=== PATIENT | female | born 1935 | race Caucasian/White ===

== ENCOUNTER → 2019-07-01 | Outpatient (CLI) | payer MEDICARE ==
[~2019-07-01] MED LIST: IOPAMIDOL 370 MG/ML 200 ML INFUS..BTL INJ ONE; SODIUM CHLORIDE 0.9% 100 ML 100 ML ONE; SODIUM CHLORIDE 0.9% 50ML 0 ML ONE
[2019-07-01 14:07] LABS: CREATININE, SERUM 0.9 mg/dL (0.57-1.11)
--- NOTE | 2019-07-01 15:30 | Diagnostic Imaging Report ---
CT of the abdomen and pelvis, with contrast. History: AAA. Comparison: <None available>. Technique: Multidetector CT scanning of the abdomen and pelvis was performed from the level of the lung bases to the inferior pubic ramus, after intravenous administration of contrast. No oral contrast was given. Sagittal and coronal multiplanar and 3D VRT reformations were obtained. Discussion: Aorta and proximal branches: An aneurysm of the distal descending thoracic and abdominal aorta is present with diffusely scattered atherosclerotic calcification and minimal mural thrombus in the distal descending thoracic aorta. The maximal diameter of the aneurysm measures 3.6 x 4.2 cm (AP by transverse) in the distal descending thoracic aorta. The celiac trunk and SMA are patent and dilated, measuring 10 and 9 mm in diameter respectively. There are single renal arteries bilaterally which are patent. The common iliac arteries are dilated and patent, measuring 15 and 10 mm in diameter respectively. Maximal measurement of the aorta are as follows: 4.2 cm in the distal descending thoracic aorta, 3.3 cm at the level of the diaphragmatic hiatus, 2.7 cm at the level of the celiac trunk, 2.5 cm at the level of the SMA, 3.0 cm at level of the renal arteries, 2.2 cm just above the level of the bifurcation, . Lung bases: The heart is enlarged. There is bibasilar atelectasis. Abdomen: The liver, biliary tree, spleen, pancreas, adrenal glands, and kidneys are normal. Cholecystectomy clips are present. The hepatic vein, portal vein, and splenic vein are patent. Evaluation of bowel is limited without oral contrast. There is no bowel dilatation. Scattered diverticula are present within the colon without evidence of adjacent inflammation. There is no evidence of adenopathy or free fluid. Pelvis: The bladder, uterus, adnexa are normal in appearance. There is no evidence of free fluid or adenopathy. Bones: Degenerative changes are present throughout the lumbar spine without evidence of lytic or sclerotic lesion. IMPRESSION: 1. 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 2. Colonic diverticulosis without evidence of diverticulitis. 3. Status post cholecystectomy. Signed by: Yifan Andersen on 07/01/2019 3:27 PM
== END ==
LOC: CT 13:06
PROVIDERS: ATTEND Internal Medicine
DX: I71.4 Abdominal aortic aneurysm, without rupture (principal); R10.9 Unspecified abdominal pain
CPT/HCPCS: 36415; 74174; 82565; 84520; Q9967

== ENCOUNTER 2020-05-25 10:43 | Observation (INO) | payer MEDICARE ==
[~2020-05-25] VITALS: Ht 157.5 cm; Wt 91.6 kg
--- NOTE | 2020-05-25 11:08 | NUR ---
LIVES ALONE; LIVES IN AN APARTMENT FOR 55 AND OLDER. NOT ASST LIVING.
--- NOTE | 2020-05-25 11:12 | NUR ---
ALL JEWLERY GIVEN TO DAUGHTER CALLY.
--- NOTE | 2020-05-25 11:30 | Emergency Department Note ---
History of Present Illnes History of Present Illness Chief Complaint: COVID PUI History of Present Illness This is a 85 year old female Chief Complaint Comment COUGH, SOB. HX CHF. PT AWAKE AND ALERT AND AMBULATORY. SENT BY DR DANIELLE FOR CHF EXACERBATION . Historian: Patient, Family Member Arrival Mode: Car Past Medical/Family History Physician Review I have reviewed the patient's past medical and family history. Any updates have been documented here. Past Medical History Recent Fever: No Clinical Suspicion of Infectio: No New/Unexplained Change in Ment: No Past Medical History: Hypertension, CHF, A-Fib, Hypothyroidism, Cancer, UTI's, Anxiety, Depression, Other Mental Illness, Hyperlipedemia Other Medical History: DEMENTIA/ALZHEIMER OBESITY AAA DIVERTICULOSIS FALLS EX SMOKER ?CANCER-BREAST (HX RADIATION POST LUMPECTOMY) Past Surgical History: Cholecysctectomy, Tubal Ligation, Lumpectomy, Cataract Removal Social History Physically hurt or threatened: No Physical Exam Related Data Allergies: Coded Allergies: Penicillins (Verified Allergy, Unknown, 05/25/20) Sulfa (Sulfonamide Antibiotics) (Verified Allergy, Unknown, 05/25/20) hydromorphone (Verified Allergy, Unknown, 05/25/20) nitrofurantoin (Verified Allergy, Unknown, 05/25/20) Triage Vital Signs Vital Signs Date Time Temp Pulse Resp B/P (MAP) Pulse Ox O2 Delivery O2 Flow Rate FiO2 05/25/20 10:59 97.7 74 18 154/86 95 Room Air Physical Exam CONSTITUTIONAL HENT EYES NECK PULMONARY CARDIOVASCULAR GASTROINTESTINAL GENITOURINARY SKIN MUSCULOSKELETAL NEUROLOGICAL PSYCHOLOGICAL Procedures 12 Lead ECG Interpretation ECG Interpretation : Database Development Project Manager: Interpreted by ED physician Date: May 25, 2020 Rhythm: atrial fibrillation Rate: normal QRS axis: normal ST segments normal: Yes T waves normal: Yes Clinical Impression: dysrhythmia - atrial Assessment & Plan Medical Decision Making MDM 85-year-old female presents for concerns of her CHF exacerbation. Endorses recent weight gain, decreased exercise tolerance. Exam shows an overall well- appearing patient in no acute distress, vital signs stable, within acceptable limits. Wheezes and crackles on exam. Do not suspect sepsis at this time. Patient will require admission for UTI. Discussed patient with Dr. Mills who have agreed to accept. Patient is appropriate for transfer to floor. Reassessment Reassessment time: 14:17 Reassessment Well appearing, NAD Assessment & Plan Final Impression: (1) UTI (urinary tract infection) Depart Disposition: ADMITTED Last Vital Signs Date Time Temp Pulse Resp B/P (MAP) Pulse Ox O2 Delivery O2 Flow Rate FiO2 05/25/20 10:59 97.7 74 18 154/86 95 Room Air ARACELIS LUGO MD May 25, 2020 11:30
--- NOTE | 2020-05-25 11:57 | Diagnostic Imaging Report ---
EXAMINATION: CHEST SINGLE (PORTABLE) INDICATION: Shortness of breath COMPARISON: CTA abdomen and pelvis of 07/01/2019 FINDINGS: LINES/TUBES:None LUNGS:The lungs are well-inflated. No focal consolidation or pulmonary edema. Peripheral right mid lung subcentimeter calcified granuloma. PLEURA:No pleural effusion or pneumothorax. MEDIASTINUM:The cardiomediastinal silhouette appears normal in size and shape. BONES/SOFT TISSUES:No acute osseous injury. ABDOMEN:No free air under the diaphragm. IMPRESSION: No focal pneumonia or pulmonary edema. Signed by: Lashell Ferrer MD on 05/25/2020 11:53 AM
[2020-05-25 11:59] LABS: BASOPHILS % 0.4 % (0.0-1.0); EOSINOPHILS # (AUTO) 0.2 (0.0-0.4); EOSINOPHILS % 1.8 % (0.0-6.0); HEMATOCRIT 37.8 % (34.2-44.1); HEMOGLOBIN 12.2 g/dL (12.0-16.0); LYMPHOCYTES # (AUTO) 1.3 (1.0-3.2); LYMPHOCYTES % 14.3 % (18.0-39.1); MEAN CORPUSCULAR HEMOGLOBIN 29.5 pg (28-32); MEAN CORPUSCULAR HGB CONC 32.3 g/dL (31-35); MEAN CORPUSCULAR VOLUME 91.5 fL (81-99); MONOCYTES # (AUTO) 0.6 (0.2-0.8); MONOCYTES % 6.5 % (4.4-11.3); NEUTROPHILS # (AUTO) 7.1 (2.1-6.9); NEUTROPHILS % 76.7 % (38.7-80.0); PLATELET COUNT 201 x10e3/uL (140-360); RED BLOOD COUNT 4.13 x10e6/uL (3.6-5.1); RED CELL DISTRIBUTION WIDTH 14.6 % (11.7-14.4)
--- OUTSIDE RECORDS SUMMARY | 2020-05-25 12:08 | XMS REPORT | Continuity of Care Document ---
Author Author [facility] Organization [facility] Address [address] [place] [address] [address]. [address] [place] [address] Phone Unavailable Care Team Providers Care Accelerator Technician Name Role Phone Benjamin OGLESBY, Ed Sandhu PCP Tamie Paez Attphys Unavailable Carol MCCABE Attphys Unavailable Problems Condition Name Condition Details Condition Category Status Onset Date Resolution Date Last Treatment Date Treating Clinician Comments Source UTI (urinary tract infection) UTI (urinary tract infection) Disease Active 2018-09-11 00:00:00 [facility] Chou Fall Fall Disease Active 2018-09-10 00:00:00 [facility] Chou Atrial fibrillation Atrial fibrillation Disease Active 2018-08-30 00:00 :00 [facility] Disease of thyroid gland Disease of thyroid gland Disease Acti ve 2018-08-30 00:00:[address] HLD (hyperlipidemia) HLD (hyperlipidemia) Disease Active 00:00:00 [facility] Syncope Syncope Disease Active 2018-08-29 00:00:00 [place] [facility] Allergies, Adverse Reactions, Alerts Allergy Name Allergy Type Status Severity Reaction(s) Onset Date Inacti ve Date Treating Clinician Comments Source Hydromorphone Propensity to adverse reactions to drug Active Jacquelyn re 2018-08-29 00:00:00 Stops breathing [place] [facility] Nitrofurantoin Monohyd/M-Cryst Propensity to adverse reactions to d rug Active 2018-08-29 00:00:00 [place] [facility] Penicillins Propensity to adverse reactions to drug Active 2018-08-29 00:00:00 [place] [facility] Sulfa (Sulfonamide Antibiotics) Propensity to adverse reactions to drug Active 2018-08-29 00:00:00 [facility] Social History Social Habit Start Date Stop Date Quantity Comments Source History SDOH Alcohol Std Drinks [place] [facility] History SDOH Alcohol Binge Murray Chou Sex Assigned At [place] [employer] [facility] Alcohol intake 2018-09-10 00:00:00 2018-09-10 00:00:00 Current non-drinker of alcohol (finding) [facility] Chou History SDOH Alcohol Frequency 2018-08-29 00:00:00 2018-08-29 00:00:0 0 1 [facility] History of tobacco use 1984-10-29 00:00:00 Current smoker [facility]ou Smoking Status Start Date Stop Date Source Former smoker 2018-09-10 00:00:00 2018-09-10 00:00:00 [facility] Medications Ordered Medication Name Filled Medication Name Start Date Stop Da te Current Medication? Ordering Clinician Indication Dosage Frequency Signature (SIG) Comments Components Source levothyroxine (SYNTHROID, LEVOXYL) 150 mcg tablet 2018-09-13 02:20:40 Yes 150ug QD Take 150 mcg by mouth every morning. [facility] Chou sertraline (ZOLOFT) 50 MG tablet 2018-09-13 02:20:40 Yes 50mg QD Take 50 mg by mouth daily. [facility] rivaroxaban (XARELTO) 15 mg tablet 2018-09-13 02:20:40 Yes 15mg QD Take 15 mg by mouth daily. [facility] donepezil (ARICEPT) 10 MG tablet 2018-09-13 02:20:40 Yes 10mg QD Take 10 mg by mouth nightly. [facility] atorvastatin (LIPITOR) 20 MG tablet 2018-09-13 02:20:40 Yes 20mg QD Take 20 mg by mouth nightly. [facility] Procedures This patient has no known procedures. Plan of Care Planned Activity Planned Date Details Comments Source Future Scheduled Test 2020-05-15 00:00:00 INFLUENZA VACCINE [code = INFLUENZA VACCINE] [facility] Chou Future Scheduled Test 2001-01-20 00:00:00 65+ PNEUMOCOCCAL V ACCINE (1 of 2 - PCV13) [code = 65+ PNEUMOCOCCAL VACCINE (1 of 2 - PCV13)] Murray Chou Future Scheduled Test 1986-01-20 00:00:00 SHINGLES VACCINES (#1) [code = SHINGLES VACCINES (#1)] [facility] Results Test Description Test Time Test Comments Results Result Comments Source CHEST SINGLE (PORTABLE) 2020-05-25 11:52:00 [facility] [address] [id number] Patient Name: NEETU JARAMILLO MR #: [id number] : 1935 Age/Sex: 85/F Req #: [id number] Adm Physician: Ordered by: Aracelis Paez MD Report #: [id number] Location: ER Room/Bed: Procedure: [id number] DX/CHEST SINGLE (PORTABLE) Exam Date: 05/25/20 Exam Time: 1120 REPORT STATUS: Signed EXAMINATION: CHEST SINGLE (PORTABLE) INDICATION: Shortness of breath COMPARISON: CTA abdomen and pelvis of 07/01/2019 FINDINGS: LINES/TUBES:None LUNGS:The lungs are well-inflated. No focal consolidation or pulmonary edema. Peripheral right mid lung subcentimeter calcified granuloma. PLEURA:No pleural effusion or pneumothorax. MEDIASTINUM:The cardiomediastinal silhouette appears normal in size and shape. BONES/SOFT TISSUES:No acute osseous injury. ABDOMEN:No free air under the diaphragm. IMPRESSION: No focal pneumonia or pulmonary edema. Signed by: Shaka Teixeira MD on 05/25/2020 11:53 AM Dictated By: SHAKA TEIXEIRA MD 1153 Transcribed By: GORDON on 05/25/20 1152 COPY TO: ARACELIS PAEZ MD CTA ABD/PELVIS 2019-07-01 15:12:00 [facility] [address] [place], [place] [address] Patient Name: NEETU JARAMILLO MR #: [id number] : 1935 Age/Sex: 84/F Req #: [id number] [facility] Physician: Ordered by: KENTON MCCABE MD Report #: [id number] Location: CT Room/Bed: Procedure: [id number] CT/CTA ABD/PELVIS Exam Date: 07/01/19 Exam Time: 1430 REPORT STATUS: Signed CT of the abdomen and pelvis, with contrast. History: AAA. Comparison: <None available>. Technique: Multidetector CT scanning of the abdomen and pelvis was performed from the level of the lung bases to the inferior pubic ramus, after intravenous administration of contrast. No oral contrast was given. Sagittal and coronal multiplanar and 3D VRT reformations were obtained. Discussion: Aorta and proximal branches: An aneurysm of the distal descending thoracic and abdominal aorta is present with diffusely scattered atherosclerotic calcification and minimal mural thrombus in the distal descending thoracic aor ta. The maximal diameter of the aneurysm measures 3.6 x 4.2 cm (AP by transverse) in the distal descending thoracic aorta. The celiac trunk and SMA are patent and dilated, measuring 10 and 9 mm in diameter respectively. There are single renal arteries bilaterally which are patent. The common iliac arteries are dilated and patent, measuring 15 and 10 mm in diameter respectively. Maximal measurement of the aorta are as follows: 4.2 cm in the distal descending thoracic aorta, 3.3 cm at the level of the diaphragmatic hiatus, 2.7 cm at the level of the celiac trunk, 2.5 cm at the level of the SMA, 3.0 cm at level of the renal arteries, 2.2 cm just above the level of the bifurcation, . Lung bases: The heart is enlarged. There is bibasilar atelectasis. Abdomen: The liver, biliary tree, spleen, pancreas, adrenal glands, and kidneys are normal. Cholecystectomy clips are present. The hepatic vein, portal vein, and splenic vein are patent. Evaluation of bowel is limited without oral contrast. There is no bowel dilatation. Scattered diverticula are present within the colon without evidence of adjacent inflammation. There is no evidence of adenopathy or free fluid. Pelvis: The bladder, uterus, adnexa are normal in appearance. There is no evidence of free fluid or adenopathy. Bones: Degenerative changes are present throughout the lumbar spine without evidence of lytic or sclerotic lesion. IMPRESSION: 1. 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 2. Colonic diverticulosis without evidence of diverticulitis. 3. Status post cholecystectomy. Signed by: Yifan Andersen on 07/01/2019 3:27 PM Dictated By: YIFAN ANDERSEN MD 1527 Transcribed By: GORDON on 07/01/19 1527 COPY TO: KENTON MCCABE MD
--- OUTSIDE RECORDS SUMMARY | 2020-05-25 12:08 | XMS REPORT | Clinical Summary ---
Author Author [facility] Organization [facility] Address Unknown Phone Unavailable Care Team Providers Care Entry Level Sales Consultant Name Role Phone Edson Alexander MD PCP Allergies Comments Active Allergy Reactions Severity Noted Date Stops breathing Hydromorphone High 08/29/2018 Nitrofurantoin 08/29/2018 Monohyd/M-Cryst Penicillins 08/29/2018 Sulfa (Sulfonamide 08/29/2018 Antibiotics) Medications End Date Status Medication Sig Dispensed Refills Start Date Active levothyroxine (SYNTHROID, Take 150 mcg 0 LEVOXYL) 150 mcg tablet by mouth every morning. Active sertraline (ZOLOFT) 50 MG Take 50 mg by 0 tablet mouth daily. Active rivaroxaban (XARELTO) 15 Take 15 mg by 0 mg tablet mouth daily. Active donepezil (ARICEPT) 10 MG Take 10 mg by 0 tablet mouth nightly. Active atorvastatin (LIPITOR) 20 Take 20 mg by 0 MG tablet mouth nightly. Default OP ins Active Problems Problem Noted Date UTI (urinary tract infection) 09/11/2018 Fall 09/10/2018 Atrial fibrillation 08/30/2018 Disease of thyroid gland 08/30/2018 HLD (hyperlipidemia) 08/30/2018 Syncope 08/29/2018 Social History Date Tobacco Use Types Packs/Day Years Used Quit: 10/29/1984 Former Smoker Smokeless Tobacco: Never Used Drinks/Week oz/Week Comments Alcohol Use No Alcohol Habits Answer Date Recorded How often do you have a drink containing alcohol? Never 08/29/2018 How many drinks containing alcohol do you have on No t asked a typical day when you are drinking? How often do you have six or more drinks on one Not asked occasion? Sex Assigned at Date Recorded Not on file Industry Job Start Date Occupation Not on file Not on file Not on file Travel End Travel History Travel Start No recent travel history available. Last Filed Vital Signs Not on file Plan of Treatment Health Maintenance Due Date Last Done Comments SHINGLES VACCINES (#1) 01/20/1986 65+ PNEUMOCOCCAL VACCINE 01/20/2001 (1 of 2 - PCV13) INFLUENZA VACCINE 05/15/2020 Results Not on fileafter 05/25/2019 Insurance Type Payer Benefit Subscriber ID Effective Phone Address Plan / Dates Group HMO [employer] xxxxxxxxx 2017-[id number] YENIFER noonan Advance Directives For more information, please contact: [phone] Patient Datawarehouse Developer Explanation Type Date Recorded Advance Directives, 08/29/2018 7:07 AM Living Will and Medical Power of Paper Stripper
[2020-05-25 12:10] LABS: INR 0.93; PROTHROMBIN TIME 12.9 seconds (11.9-14.5)
[2020-05-25 12:17] LABS: ALBUMIN 3.3 g/dL (3.5-5.0); ALBUMIN/GLOBULIN RATIO 0.8 (0.8-2.0); ANION GAP 12.5 mmol/L (8-16); CALCIUM 9.3 mg/dL (8.4-10.2); POTASSIUM 4.5 mmol/L (3.5-5.1)
[2020-05-25 12:25] LABS: CLARITY,URINE SL CLOUDY (CLEAR); COLOR,URINE YELLOW (YELLOW)
[2020-05-25 12:26] LABS: BILIRUBIN,URINE NEGATIVE (NEGATIVE); KETONES,URINE NEGATIVE (NEGATIVE); LEUKOCYTE ESTERASE ,URINE MODERATE (NEGATIVE); NITRITE,URINE NEGATIVE (NEGATIVE); PROTEIN,URINE DIPSTICK TRACE (NEGATIVE); URINE UROBILINOGEN 0.2 mg/dL (0.2 - 1)
[2020-05-25 12:36] LABS: BACTERIA,URINE MODERATE /HPF; WBC,URINE (MAN) >50 /HPF (0-5)
[2020-05-25 12:37] LABS: MUCUS,URINE FEW (RARE)
[2020-05-25] MEDS ORDERED: CEFTRIAXONE SOD 1 GM/NS 50 ML 50 ML IV ONE (13:15)
--- NOTE | 2020-05-25 13:42 | NUR ---
KITCH[facility] CALLED TO BRING PATIENT A SNACK, LOW SODIUM
--- OUTSIDE RECORDS SUMMARY | 2020-05-25 14:22 | XMS REPORT | Clinical Summary ---
Author Author [facility] Organization [facility] Address Unknown Phone Unavailable Care Team Providers Care Lighting Director Name Role Phone Edson Alexander MD PCP [...] Advance Directives For more information, please contact: [phone] Patient Director Learning Services Explanation Type Date Recorded Advance Directives, 08/29/2018 7:07 AM Living Will and Medical Power of Corrugator Operator
--- OUTSIDE RECORDS SUMMARY | 2020-05-25 14:22 | XMS REPORT | Continuity of Care Document ---
Author Author [facility] Organization [facility] Address [address] [place] [address] Dr. [address] [place] [address] Phone Unavailable Care Team Providers Care Improvement Auditor Name Role Phone Benjamin OGLESBY, Ed Sandhu [...] (hyperlipidemia) HLD (hyperlipidemia) Disease Active 00:00:00 [place] [facility] Syncope Syncope Disease Active 2018-08-29 00:00:00 [place] [facility] Allergies, Adverse Reactions, Alerts Allergy Name Allergy Type Status Severity Reaction(s) Onset Date Inacti ve Date Treating Clinician Comments Source Hydromorphone Propensity to adverse reactions to drug Active Jacquelyn re 2018-08-29 00:00:00 Stops breathing [place] [facility] Nitrofurantoin Monohyd/M-Cryst Propensity to adverse reactions to d rug Active 2018-08-29 00:00:00 [place] [facility] Penicillins Propensity to adverse reactions to drug Active 2018-08-29 00:00:00 [place] [facility] Sulfa (Sulfonamide Antibiotics) Propensity to adverse reactions to drug Active 2018-08-29 00:00:00 [place] [facility] Social History Social Habit Start Date Stop Date Quantity Comments Source History SDOH Alcohol Std Drinks [place] [facility] History SDOH Alcohol Binge [facility] Chou Sex Assigned At [place] [employer] [facility] Alcohol intake 2018-09-10 00:00:00 2018-09-10 00:00:00 Current [...] by mouth nightly. [facility] Procedures This patient has no known procedures. [...] Comments Source CHEST SINGLE (PORTABLE) 2020-05-25 11:52:00 [facility] [address] [id number] Patient Name: NEETU JARAMILLO MR #: [id number] : 1935 Age/Sex: 85/F Req #: [id number] Adm Physician: Ordered by: Aracelis Paez MD Report #: [id number] Location: ER Room/Bed: Procedure: [id number] DX/CHEST SINGLE (PORTABLE) Exam Date: 05/25/20 Exam [...] MD 1153 Transcribed By: GORDON on 05/25/20 1157 COPY TO: ARACELIS PAEZ MD CTA ABD/PELVIS 2019-07-01 15:12:00 [facility] [address] [place], [place] [address] Patient Name: NEETU JARAMILLO MR #: [id number] : 1935 Age/Sex: 84/F Req #: [id number] [facility] Physician: Ordered by: KENTON MCCABE MD Report #: [id number] Location: CT Room/Bed: Procedure: [id number] CT/CTA ABD/PELVIS Exam Date: 07/01/19 Exam Time: [...]
--- NOTE | 2020-05-25 17:00 | NUR ---
Patient was admitted to the floor from the ER. She is awake alert and oriented x3. She was oriented to the room and how to use the call light, she verbalized understanding to call for assistance before getting out of bed. The patient denies any Fever or cough. She has no complaints at this time, patient is unable to provide her home medication list, said to call her daughter, Marisa. Call light in reach, bed alarm on
[2020-05-25] MEDS ORDERED: SYNTHROID125 MCG PO (17:50)
[2020-05-25] MEDS ORDERED: SERTRALINE HCL50 MG PO (17:50)
[2020-05-25] MEDS ORDERED: ATORVASTATIN CA20 MG PO (17:50)
[2020-05-25] MEDS ORDERED: LOSARTAN POTASS25 MG PO (17:50)
[2020-05-25] MEDS ORDERED: POTASSIUM CHLO10 ME1 PO (17:50)
[2020-05-25] MEDS ORDERED: METOPROLOL SUCC25 MG PO (17:50)
[2020-05-25] MEDS ORDERED: ARICEPT5 MG PO (17:50)
[2020-05-25] MEDS ORDERED: B-121000 MCG PO (17:50)
[2020-05-25] MEDS ORDERED: XARELTO10 MG PO (17:50)
[2020-05-25] MEDS ORDERED: LASIX20 MG PO (17:50)
[2020-05-25 17:54] VITALS: BP 124/76
[2020-05-25 18:05] VITALS: BP 124/76
--- NOTE | 2020-05-25 19:10 | NUR ---
Received the pt in report.bed alarm is on.
[2020-05-25 20:00] VITALS: BP 128/62
[2020-05-25 20:53] VITALS: BP 128/62
[2020-05-25] MEDS ORDERED: HYDRALAZINE HCL 20 MG/ML VIAL IV PRN (21:30)
[2020-05-25] MEDS ORDERED: MELATONIN 5 MG TABLET PO PRN (21:30)
[2020-05-25] MEDS ORDERED: DOCUSATE SODIUM 100 MG CAP PO PRN (21:30)
[2020-05-25] MEDS ORDERED: TRAMADOL HCL 50 MG TAB PO PRN (21:30)
[2020-05-25] MEDS ORDERED: ACETAMINOPHEN 325 MG TAB PO PRN (21:30)
[2020-05-25] MEDS: FUROSEMIDE INJ 10 MG/ML 4 ML VIAL IV SCH (22:42)
[2020-05-25] MEDS ORDERED: BENZONATATE 100 MG CAP PO PRN (23:15)
[2020-05-25] MEDS ORDERED: GUAIFENESIN/DEXTROMETHORPHAN LIQD 5 ML UDC NG PRN (23:15)
[2020-05-25] MEDS ORDERED: ALBUTEROL/IPRATROPIUM 3 ML NEB NEB PRN (23:15)
[2020-05-25] MEDS: PREDNISONE 20 MG TAB PO SCH (23:22)
--- NOTE | 2020-05-25 23:27 | NUR ---
Assessment done.has wheezing.aaox3.ambulates with stand by assistance. is in the unit.received new orders.call light within reach.instructed to call for assistance as needed.
--- NOTE | 2020-05-25 23:55 | History and Physical ---
CHIEF COMPLAINT: Shortness of breath. HISTORY OF PRESENT ILLNESS: An 85-year-old female, very poor historian due to underlying Alzheimer's dementia. She has a history of CHF, atrial fibrillation, hypertension, Alzheimer's dementia, former smoker, history of chronic obstructive pulmonary disease. She presents to the emergency room, sent in by her PCP with underlying cough, congestion, and subjective fever. The patient is a very poor historian on examination. She reports having some cough and congestion ongoing for the last several days and underlying wheezing. Episodic fevers at home. Unable to tell me the fever she has. The patient was seen and evaluated at bedside on the medical floor. She is currently doing well with no other issues at this time. She does report having some lower extremity edema. She does take her diuretics at home. REVIEW OF SYSTEMS: Pertinent positives: Lower extremity edema, cough, congestion, wheezing, subjective fever. The rest of 14-point review of systems have been reviewed with the patient and are negative. ALLERGIES: PENICILLIN, SULFA, HYDROMORPHONE, AND NITROFURANTOIN. HOME MEDICATIONS: 1. Lipitor. 2. Aricept. 3. Synthroid. 4. Losartan. 5. Metoprolol. 6. Xarelto. 7. Sertraline. PAST MEDICAL HISTORY: Alzheimer's dementia, hypothyroidism, hypertension, CHF, atrial fibrillation, depression, hyperlipidemia. PAST SURGICAL HISTORY: Cholecystectomy, tubal ligation, lumpectomy, cardiac removal, history of breast cancer with radiation. PAST FAMILY HISTORY: Hypertension and diabetes. SOCIAL HISTORY: She has baseline dementia. She was a former smoker. LABORATORY FINDINGS: Show white count was 9.2, hemoglobin 12, hematocrit 37, platelets of 201. Coagulation; PT 12.9, INR 0.93. Chemistry, sodium 134, potassium 4.5, chloride 97, bicarb 29, anion gap of 12. BUN is 13, creatinine is 1. Glucose is 93, calcium 9.3. LFTs within normal range. Troponins were negative. BNP was 191. Total protein 7.5, albumin 3.3. Urinalysis shows greater than 50 WBCs, 11 to 20 RBCs, moderate bacteria. Serology; coronavirus is pending. Urine cultures are pending. IMAGING STUDIES: Chest x-ray, no focal pneumonia or pulmonary edema. PHYSICAL EXAMINATION: VITAL SIGNS: Temperature is 98.1, pulse 73, respiratory rate is 18, blood pressure is 128/62, pulse ox 98% on room air. GENERAL: Not in acute distress. Alert and oriented x3. Cooperative on examination. HEENT: Head is normocephalic and atraumatic. Eyes; pupils are equal, round, and reactive to the light bilaterally. NECK: Supple. Good range of motion. PULMONARY: Expiratory wheezing appreciated. No rhonchi, no rales, no crackles, but positive expiratory wheezing. CARDIOVASCULAR: Positive S1, S2. No murmurs, rubs, or gallops appreciated. GI: Abdomen is soft, nondistended, and nontender to palpation. Bowel sounds present. MUSCULOSKELETAL: Strength is 5/5 throughout. No evidence of muscle deficits on examination. No weakness appreciated. NEUROLOGIC: Cranial nerves 2 through 12 are grossly intact. No evidence of any neurological deficits on exam. SKIN: Intact. Warm to touch. Good cap refill. EXTREMITIES: No edema. Good range of motion throughout. IMPRESSION: 1. Acute exacerbation of chronic obstructive pulmonary disease. 2. Acute exacerbation of congestive heart failure, unknown dysfunction/history of coronary artery disease. 3. Urinary tract infection. 4. Baseline Alzheimer's dementia. 5. Hypertension. PLAN: At this time, the patient seems to have more of a COPD exacerbation, which we will go ahead and would start on IV antibiotics, steroids, neb treatments. As for her CHF and CAD and atrial fibrillation, the patient is already on rate control medications. Xarelto for anticoagulation and cardioprotective medications. As for the UTI, urine culture has been sent, pending. She is on IV antibiotic therapy. I will resume same home medications. Xarelto for DVT prophylaxis. Physical therapy has been consulted. Discussed plan of care with nursing staff. I did add some antitussives. MD ROSA Light/HENNY /[id number]
[2020-05-26] VITALS (8 sets, daily range): BP systolic 104–151; BP diastolic 57–100
[2020-05-26 04:52] LABS: BASOPHILS % 0.3 % (0.0-1.0); EOSINOPHILS % 0.1 % (0.0-6.0); HEMATOCRIT 38.1 % (34.2-44.1); LYMPHOCYTES # (AUTO) 0.5 (1.0-3.2); LYMPHOCYTES % 7.2 % (18.0-39.1); MEAN CORPUSCULAR HEMOGLOBIN 29.1 pg (28-32); MEAN CORPUSCULAR HGB CONC 31.5 g/dL (31-35); MEAN CORPUSCULAR VOLUME 92.3 fL (81-99); MONOCYTES # (AUTO) 0.1 (0.2-0.8); MONOCYTES % 1.5 % (4.4-11.3); NEUTROPHILS # (AUTO) 6.8 (2.1-6.9); NEUTROPHILS % 90.5 % (38.7-80.0); PLATELET COUNT 173 x10e3/uL (140-360); RED BLOOD COUNT 4.13 x10e6/uL (3.6-5.1); RED CELL DISTRIBUTION WIDTH 14.2 % (11.7-14.4)
[2020-05-26 05:37] LABS: ALBUMIN 3.1 g/dL (3.5-5.0); ALBUMIN/GLOBULIN RATIO 0.8 (0.8-2.0); ANION GAP 13.2 mmol/L (8-16); CALCIUM 9.2 mg/dL (8.4-10.2); CREATININE, SERUM 0.95 mg/dL (0.57-1.11); POTASSIUM 4.2 mmol/L (3.5-5.1)
[2020-05-26] MEDS: LEVOTHYROXINE SODIUM 125 MCG TAB PO SCH (06:16)
--- NOTE | 2020-05-26 06:45 | NUR ---
CALLED ANSWERING SERVICE AND LEFT MESSAGE REGARDING ADMISSION OF THE PATIENT @ THE HOSPITAL. Addendum: 05/26/20 at 0654 by Parmjit Alvarez RN 'S OFFICE.
--- NOTE | 2020-05-26 07:50 | NUR ---
PATIENT IS ALERT AND IN STABLE CONDITION WITH NO S/S OF RESPIRATORY DISTRESS. NO PAIN VOICED. TELEMETRY APPLIED. EDEMA NOTED TO LOWER EXTREMITIES PITTING 1+. CALL LIGHT IS WITHIN REACH, PATIENT INSTRUCTED TO CALL FOR ASSISTANCE NEEDED.
[2020-05-26] MEDS: SERTRALINE HCL 50 MG TAB PO SCH (07:52)
[2020-05-26] MEDS: METOPROLOL SUCCINATE 25 MG TAB XL PO SCH (07:54)
[2020-05-26] MEDS: PREDNISONE 20 MG TAB PO SCH (07:54)
[2020-05-26] MEDS: FUROSEMIDE INJ 10 MG/ML 4 ML VIAL IV SCH ×2 (07:54→21:15)
[2020-05-26] MEDS: CEFTRIAXONE SOD 2 GM/NS 100 ML 100 ML IV SCH (12:15)
--- NOTE | 2020-05-26 13:21 | NUR ---
Discontinuing PT services since patient is Mod I in functional mobility. Thank you Addendum: 05/26/20 at 1322 by Javier squires PT Amended: Links added.
[2020-05-26] MEDS ORDERED: GUAIFENESIN 200 MG/10 ML UDC PO PRN (14:15)
[2020-05-26] MEDS ORDERED: RIVAROXABAN 10 MG TABLET PO SCH (17:00)
--- NOTE | 2020-05-26 19:28 | NUR ---
PATIENT IS IN STABLE CONDITION WITH NO S/S OF RESPIRATORY DISTRESS- NO PAIN VOICED. CALL LIGHT IS WITHIN REACH, PATIENT INSTRUCTED TO CALL FOR ASSISTANCE NEEDED. BEDSIDE SHIFT REPORT GIVEN TO ONCOMING NURSE.
--- NOTE | 2020-05-26 20:45 | NUR ---
Assessment done.Resting in the bed.no resp distress.no pain voiced.ambulates to rest room and voided.bed locked and in lowest position. call light within reach.instructed to call for assistance as needed.
[2020-05-26] MEDS ORDERED: ATORVASTATIN 20 MG TAB PO SCH (21:00)
[2020-05-26] MEDS ORDERED: DONEPEZIL HCL 5 MG TAB PO SCH (21:00)
[2020-05-26] MEDS ORDERED: LOSARTAN POTASSIUM 25 MG TAB PO SCH (21:00)
--- NOTE | 2020-05-27 00:17 | Progress Note ---
DATE: 05/26/2020 Medicine Progress Note SUBJECTIVE: The patient is breathing much better today. No overnight events. PHYSICAL EXAMINATION: VITAL SIGNS: Temperature was 97.4, pulse is 81, respiratory rate is 20, blood pressure is 127/89. She was saturating 94% on room air. GENERAL: Not in acute distress. Alert and oriented x3. Cooperative on examination. HEENT: Head; normocephalic, atraumatic. Eyes; pupils are equal, round, and reactive to light bilaterally. Extraocular movements intact bilaterally. Throat; no evidence of erythema or exudates in the posterior pharynx. Has poor dentition. NECK: Supple. Good range of motion. PULMONARY: Clear to auscultation bilaterally. No wheezing, no rales, no rhonchi, no crackles appreciated. CARDIOVASCULAR: Positive S1 and S2. No murmurs, rubs, or gallops appreciated. ABDOMEN: Soft, nondistended, and nontender to palpation. Bowel sounds present. MUSCULOSKELETAL: Strength is 5/5 throughout. No evidence of any muscle deficits on examination. NEUROLOGIC: Cranial nerves 2 through 12 grossly intact. No evidence of any neurological deficits on exam. SKIN: Intact. Warm to touch. Good cap refill. PSYCHIATRIC: Normal affect and mood. EXTREMITIES: No edema. Good range of motion throughout. LABORATORY FINDINGS: Show white count 7.4, hemoglobin 12, hematocrit 38, platelets of 173. Coagulation; PT 12, INR 0.93. Chemistry; sodium 137, potassium 4.2, chloride 99, bicarb 29, anion gap of 13, BUN 13, creatinine 0.95, calcium was 9.2. LFTs were normal. Troponins were negative. Albumin was 3.1. Urinalysis noted. Mcnair virus not detected. Microbiology, urine cultures preliminary still shows mixed brittney contamination. IMAGING STUDIES: Chest x-ray shows no focal pneumonia or pulmonary edema. IMPRESSION: 1. Acute exacerbation of chronic obstructive pulmonary disease. 2. Acute exacerbation of congestive heart failure with unknown dysfunction. History of coronary artery disease. 3. Urinary tract infection. 4. Baseline Alzheimer's dementia. 5. Hypertension. PLAN: At this time, continue with steroids, antibiotics, and neb treatments. The patient looks tremendously well today with no complaints. Her wheezing is gone. She is breathing well with no issues. As for CHF and CAD and atrial fibrillation, continue with rate control medications, oral Xarelto for anticoagulation as well as cardioprotective medications. The UA for/UTI seems to be more of a contaminant. Continue with IV antibiotics and discharge on oral antibiotics. Xarelto for DVT prophylaxis. Plan of care discussed with the patient. MD ROSA Light/HENNY /[id number]
[2020-05-27 00:49] VITALS: BP 120/86
[2020-05-27 05:03] VITALS: BP 127/69
[2020-05-27] MEDS: LEVOTHYROXINE SODIUM 125 MCG TAB PO SCH (05:46)
--- NOTE | 2020-05-27 07:00 | NUR ---
PATIENT IS ALERT AND IN STABLE CONDITION WITH NO S/S OF RESPIRATORY DISTRESS. NO PAIN VOICED. TELEMETRY APPLIED. CALL LIGHT IS WITHIN REACH, PATIENT INSTRUCTED TO CALL FOR ASSISTANCE NEEDED.
--- NOTE | 2020-05-27 07:05 | NUR ---
Bed side shift report given to oncoming Rn.stable condition.
[2020-05-27 07:51] VITALS: BP 114/54
[2020-05-27 08:30] VITALS: BP 114/54
[2020-05-27] MEDS: PREDNISONE 20 MG TAB PO SCH (08:31)
[2020-05-27] MEDS: FUROSEMIDE INJ 10 MG/ML 4 ML VIAL IV SCH (08:31)
[2020-05-27] MEDS: SERTRALINE HCL 50 MG TAB PO SCH (08:31)
[2020-05-27 11:33] VITALS: BP 140/77
[2020-05-27] MEDS: METOPROLOL SUCCINATE 25 MG TAB XL PO SCH (12:07)
[2020-05-27] MEDS: CEFTRIAXONE SOD 2 GM/NS 100 ML 100 ML IV SCH (12:07)
[2020-05-27 16:06] VITALS: BP 129/67
--- NOTE | 2020-05-27 17:00 | NUR ---
PATIENT DISCHARGE HOME- PATIENT OFF THE UNIT AT 1655 PER WHEELCHAIR ACCOMPANIED BY RN TO THE FRONT LOBBY. PATIENT IN STABLE CONDITION WITH NO S/S OF RESPIRATORY DISTRESS. NO PAIN VOICED. IV REMOVE WITH TIP INTACT. DISCHARGE TEACHING, INSTRUCTIONS, AND MEDICATIONS GIVEN TO THE PATIENT. PATIENT'S DAUGHTER, CALLY ([phone]), CALLED REGARDING DISCHARGE TEACHING, INSTRUCTIONS, AND MEDICATIONS. ALL PERSONAL ITEMS WERE TAKEN BY THE PATIENT.
--- NOTE | 2020-05-28 00:52 | Discharge Summary ---
FINAL DISCHARGE DIAGNOSES: 1. Acute exacerbation of chronic obstructive pulmonary disease. 2. Acute exacerbation of congestive heart failure with a history of coronary artery disease. 3. Baseline dementia. 4. Hypertension. CONSULTANTS: None. PHYSICAL EXAMINATION: VITAL SIGNS: Temperature is 97.6, pulse 70, respiratory rate is 21, blood pressure 129/67, pulse ox 96% on room air. The patient is also on the home O2 as well. LABORATORY DATA: Labs show white count 7.4, hemoglobin 12, hematocrit is 38, platelets of 173. Chemistry showed sodium 137, potassium 4.2, chloride 99, bicarb 29, anion gap of 13, BUN 13, creatinine 0.95, glucose is 166. LFTs within normal range. Troponins are negative. BNP 191. Albumin is 3.1. Urinalysis shows wbc's greater than 50, rbc's 11-20. Coronavirus not detected. Urine culture, mixed brittney contamination. IMAGING STUDIES: Chest x-ray, no focal pneumonia or pulmonary edema. HOSPITAL COURSE: This is an 85-year-old female, who has a known history of COPD, came with underlying cough, congestion and wheezing, and was treated accordingly with steroids, antibiotics, and neb treatments. The patient was also given some diuretics for possible underlying CHF. The patient improved over the last several days while here in the hospital stay. Her urine culture was found to be in normal brittney. Did not have any evidence of any UTI. In fact, the patient improved tremendously and was discharged on oral steroids and antibiotics. Her wheezing was all gone. She will continue with same home medications with no changes. Discussed plan of care with the patient and the patient's family members. They verbalized understanding. On the day of discharge, vital signs were stable, labs reviewed and stable. The patient is seen and evaluated, and examined thoroughly on the day of discharge. No other complaints. The patient verbalized understanding and agrees to plan of care to follow up accordingly as an outpatient with the primary care physician in 1 week. MEDICATIONS: See med reconciliation form. DISPOSITION: Home. CONDITION: Stable. DIET: Heart healthy. In the event of any worsening symptoms, the patient was advised to come back to the ED for further evaluation. Discharge summary took greater than 35 minutes. MD ROSA Light/JOSEL /[id number]
== END 2020-05-27 16:55 | disposition home or self-care (01) ==
LOC: ER 12:06 → ERHOLD 14:11 → MED/SURG2 16:45
PROVIDERS: ADMIT Internal Medicine; ATTEND Internal Medicine
DX: J44.1 Chronic obstructive pulmonary disease with (acute) exacerbation (principal); I11.0 Hypertensive heart disease with heart failure; I50.9 Heart failure, unspecified; G30.9 Alzheimer's disease, unspecified; F02.80 Dementia in other diseases classified elsewhere, unspecified severity, without behavioral disturbance, psychotic disturbance, mood disturbance, and anxiety; N39.0 Urinary tract infection, site not specified; Z11.59 Encounter for screening for other viral diseases; Z88.0 Allergy status to penicillin; Z88.2 Allergy status to sulfonamides
CPT/HCPCS: 36415 ×2; 71045; 80053 ×2; 81001; 83880; 84484; 85025 ×2; 85610; 87086; 93005; 94640; 97161; 99284; G0378 ×3; J0696 ×2; J1940 ×3; J7512 ×3; U0002

== ENCOUNTER → 2020-07-08 | Outpatient (CLI) | payer MEDICARE ==
[~2020-07-08] MED LIST changes: +ARICEPT5 MG PO; +ATORVASTATIN CA20 MG PO; +B-121000 MCG PO; +LASIX20 MG PO; +LOSARTAN POTASS25 MG PO; +METOPROLOL SUCC25 MG PO; +POTASSIUM CHLO10 ME1 PO; +SERTRALINE HCL50 MG PO; -SODIUM CHLORIDE 0.9% 100 ML 100 ML ONE; +SODIUM CHLORIDE 0.9% 100 ML ONE; +SODIUM CHLORIDE 0.9% 500ML 500 ML ONE; +SYNTHROID125 MCG PO; +XARELTO10 MG PO
[2020-07-08 10:41] LABS: CREATININE, SERUM 1.04 mg/dL (0.57-1.11)
== END ==
LOC: CT 09:30
PROVIDERS: ATTEND Internal Medicine
DX: I71.4 Abdominal aortic aneurysm, without rupture (principal)
CPT/HCPCS: 36415; 74174; 82565; 84520; 96360; J7040; J7050; Q9967

== ENCOUNTER → 2021-02-10 | Outpatient (CLI) | payer MEDICARE ==
[~2021-02-10] MED LIST changes: -SODIUM CHLORIDE 0.9% 50ML 0 ML ONE
[2021-02-10 10:38] LABS: CREATININE, SERUM 0.95 mg/dL (0.57-1.11)
== END ==
LOC: CT 09:14
PROVIDERS: ATTEND Internal Medicine
DX: I71.4 Abdominal aortic aneurysm, without rupture (principal)
CPT/HCPCS: 36415; 74174; 82565; 84520; 96360; J7040; J7050; Q9967

== ENCOUNTER 2021-06-22 15:38 | Inpatient (IN) | payer MEDICARE, OTHER ==
[~2021-06-22] VITALS: Ht 157.5 cm; Wt 91.6 kg
[~2021-06-22 15:38] MED LIST changes: -IOPAMIDOL 370 MG/ML 200 ML INFUS..BTL INJ ONE; -SODIUM CHLORIDE 0.9% 100 ML ONE; -SODIUM CHLORIDE 0.9% 500ML 500 ML ONE
[2021-06-22] MEDS ORDERED: ASPIRIN 81 MG CHEW TAB PO ONE (16:30)
[2021-06-22 16:57] LABS: BASOPHILS % 0.4 % (0.0-1.0); EOSINOPHILS # (AUTO) 0.1 (0.0-0.4); EOSINOPHILS % 0.9 % (0.0-6.0); HEMATOCRIT 39.9 % (34.2-44.1); HEMOGLOBIN 12.2 g/dL (12.0-16.0); LYMPHOCYTES # (AUTO) 1.7 (1.0-3.2); LYMPHOCYTES % 17.4 % (18.0-39.1); MEAN CORPUSCULAR HEMOGLOBIN 29.4 pg (28-32); MEAN CORPUSCULAR HGB CONC 30.6 g/dL (31-35); MEAN CORPUSCULAR VOLUME 96.1 fL (81-99); MONOCYTES # (AUTO) 0.6 (0.2-0.8); MONOCYTES % 6.6 % (4.4-11.3); PLATELET COUNT 222 x10e3/uL (140-360); RED BLOOD COUNT 4.15 x10e6/uL (3.6-5.1); RED CELL DISTRIBUTION WIDTH 14.6 % (11.7-14.4)
[2021-06-22 17:06] LABS: INR 1.68; PROTHROMBIN TIME 20.1 seconds (11.9-14.5)
[2021-06-22 17:07] LABS: PARTIAL THROMBOPLASTIN TIME 31.9 seconds (23.8-35.5)
[2021-06-22 17:17] LABS: ALBUMIN 3.2 g/dL (3.5-5.0); ALBUMIN/GLOBULIN RATIO 0.7 (0.8-2.0); ANION GAP 17.3 mmol/L (8-16); CALCIUM 8.7 mg/dL (8.4-10.2); CREATININE, SERUM 0.96 mg/dL (0.57-1.11); MAGNESIUM 1.7 MG/DL (1.3-2.1); POTASSIUM 4.3 mmol/L (3.5-5.1)
[2021-06-22 17:26] LABS: CREATINE KINASE MB 0.9 ng/mL (0-5.0)
[2021-06-22 18:10] LABS: CLARITY,URINE SL CLOUDY (CLEAR); COLOR,URINE YELLOW (YELLOW); KETONES,URINE NEGATIVE (NEGATIVE); LEUKOCYTE ESTERASE ,URINE MODERATE (NEGATIVE); NITRITE,URINE NEGATIVE (NEGATIVE); PROTEIN,URINE DIPSTICK NEGATIVE (NEGATIVE); URINE UROBILINOGEN 0.2 mg/dL (0.2 - 1)
[2021-06-22 18:22] LABS: BACTERIA,URINE MANY /HPF; EPITHELIAL CELLS,URINE MODERATE /LPF; RBC,URINE 0-5 /HPF (0-5)
[2021-06-22] MEDS ORDERED: ALBUTEROL SULFATE HFA 8GM INHALATION AEROSOL INH PRN (18:30)
[2021-06-22] MEDS ORDERED: ALBUTEROL SULF 0.083% NEB SOLN 3 ML NEB NEB STA (19:55)
[2021-06-22] MEDS ORDERED: IPRATROPIUM BROMIDE 0.02% 2.5 ML NEB NEB ONE (20:00)
[2021-06-22] MEDS ORDERED: METHYLPREDNISOLONE SOD SUCC 125 MG/2ML VIAL IM ONE (20:00)
[2021-06-22] MEDS ORDERED: ONDANSETRON HCL INJ 2MG/ML 2ML 2 MG/ML VIAL IV PRN (21:30)
[2021-06-22] MEDS ORDERED: SODIUM CHLORIDE FLUSH 10 ML SYR INJ PRN (21:30)
[2021-06-22] MEDS: ALBUTEROL/IPRATROPIUM 3 ML NEB NEB SCH (23:00)
[2021-06-22] MEDS: METHYLPREDNISOLONE SOD SUCC 40 MG/ML VIAL 1ML IV SCH (23:50)
[2021-06-23] MEDS: CEFTRIAXONE 1 GM in SODIUM CHLORIDE 0.9% 50ML 50 ML IV SCH ×2 (01:57→09:14)
[2021-06-23] MEDS: ALBUTEROL/IPRATROPIUM 3 ML NEB NEB SCH ×5 (02:55→19:03)
[2021-06-23] MEDS: METHYLPREDNISOLONE SOD SUCC 40 MG/ML VIAL 1ML IV SCH ×3 (06:49→17:15)
[2021-06-23 11:14] LABS: ALBUMIN 3.3 g/dL (3.5-5.0); ALBUMIN/GLOBULIN RATIO 0.8 (0.8-2.0); ANION GAP 19.2 mmol/L (8-16); CALCIUM 9.1 mg/dL (8.4-10.2); CREATININE, SERUM 1.16 mg/dL (0.57-1.11); POTASSIUM 4.2 mmol/L (3.5-5.1)
[2021-06-23] MEDS: LEVOTHYROXINE SODIUM 125 MCG TAB PO SCH (12:00)
[2021-06-23] MEDS: METOPROLOL SUCCINATE 25 MG TAB XL PO SCH (12:00)
[2021-06-23 12:10] LABS: BASOPHILS % 0.2 % (0.0-1.0); HEMATOCRIT 41.5 % (34.2-44.1); HEMOGLOBIN 12.3 g/dL (12.0-16.0); LYMPHOCYTES # (AUTO) 0.7 (1.0-3.2); MEAN CORPUSCULAR HEMOGLOBIN 29.5 pg (28-32); MEAN CORPUSCULAR HGB CONC 29.6 g/dL (31-35); MEAN CORPUSCULAR VOLUME 99.5 fL (81-99); MONOCYTES # (AUTO) 0.1 (0.2-0.8); MONOCYTES % 1.1 % (4.4-11.3); NEUTROPHILS # (AUTO) 11.1 (2.1-6.9); NEUTROPHILS % 91.9 % (38.7-80.0); PLATELET COUNT 205 x10e3/uL (140-360); RED BLOOD COUNT 4.17 x10e6/uL (3.6-5.1); RED CELL DISTRIBUTION WIDTH 14.7 % (11.7-14.4)
[2021-06-23 16:38] VITALS: BP 129/65
[2021-06-23 16:39] VITALS: BP 125/65
[2021-06-23] MEDS: RIVAROXABAN 15 MG TABLET PO SCH (17:15)
[2021-06-23 18:57] LABS: CREATINE KINASE MB 1.9 ng/mL (0-5.0)
[2021-06-23 20:19] VITALS: BP 118/64
[2021-06-23] MEDS: DONEPEZIL HCL 5 MG TAB PO SCH (21:00)
[2021-06-24] VITALS (10 sets, daily range): BP systolic 105–137; BP diastolic 56–82
[2021-06-24] MEDS: ATORVASTATIN 20 MG TAB PO SCH ×2 (00:38→21:27)
[2021-06-24] MEDS: LEVOTHYROXINE SODIUM 125 MCG TAB PO SCH (07:21)
[2021-06-24] MEDS: METHYLPREDNISOLONE SOD SUCC 40 MG/ML VIAL 1ML IV SCH ×4 (07:21→16:41)
[2021-06-24] MEDS: ALBUTEROL/IPRATROPIUM 3 ML NEB NEB SCH ×4 (07:50→18:58)
[2021-06-24] MEDS: CEFTRIAXONE 1 GM in SODIUM CHLORIDE 0.9% 50ML 50 ML IV SCH (08:40)
[2021-06-24] MEDS: METOPROLOL SUCCINATE 25 MG TAB XL PO SCH (08:41)
[2021-06-24] MEDS: SERTRALINE HCL 50 MG TAB PO SCH (08:41)
[2021-06-24] MEDS ORDERED: QUETIAPINE FUMARATE 25 MG TAB PO PRN (10:45)
[2021-06-24] MEDS: RIVAROXABAN 15 MG TABLET PO SCH (16:41)
[2021-06-24] MEDS: DONEPEZIL HCL 5 MG TAB PO SCH (21:27)
[2021-06-25 00:36] VITALS: BP 99/51
[2021-06-25 02:25] VITALS: BP 99/51
[2021-06-25] MEDS: METHYLPREDNISOLONE SOD SUCC 40 MG/ML VIAL 1ML IV SCH ×3 (05:11→11:52)
[2021-06-25] MEDS: LEVOTHYROXINE SODIUM 125 MCG TAB PO SCH (05:11)
[2021-06-25 05:15] VITALS: BP 124/76
[2021-06-25] MEDS: ALBUTEROL/IPRATROPIUM 3 ML NEB NEB SCH ×3 (06:30→14:50)
[2021-06-25 08:05] VITALS: BP 119/70
[2021-06-25 08:29] VITALS: BP 119/70
[2021-06-25] MEDS: CEFTRIAXONE 1 GM in SODIUM CHLORIDE 0.9% 50ML 50 ML IV SCH (08:46)
[2021-06-25] MEDS ORDERED: SODIUM CHLORIDE 0.9% 250ML 250 ML ONE (08:46)
[2021-06-25] MEDS: SERTRALINE HCL 50 MG TAB PO SCH (08:47)
[2021-06-25] MEDS: METOPROLOL SUCCINATE 25 MG TAB XL PO SCH (08:47)
[2021-06-25 12:19] VITALS: BP 114/98
== END 2021-06-25 15:20 | disposition home or self-care (01) | DRG 190 ==
LOC: ER 16:51 → ERHOLD 21:32 → MED/SURG3 06-23 15:58 → OBSVTOIN 06-24 10:28
PROVIDERS: ADMIT Internal Medicine; ATTEND Internal Medicine
DX: J44.0 Chronic obstructive pulmonary disease with (acute) lower respiratory infection (principal); G92 Toxic encephalopathy; N39.0 Urinary tract infection, site not specified; F02.81 Dementia in other diseases classified elsewhere, unspecified severity, with behavioral disturbance; F05 Delirium due to known physiological condition; I50.32 Chronic diastolic (congestive) heart failure; J44.1 Chronic obstructive pulmonary disease with (acute) exacerbation; Z88.5 Allergy status to narcotic agent; Z88.0 Allergy status to penicillin; Z88.2 Allergy status to sulfonamides; Z88.8 Allergy status to other drugs, medicaments and biological substances; G30.9 Alzheimer's disease, unspecified; E66.9 Obesity, unspecified; I48.91 Unspecified atrial fibrillation; Z79.01 Long term (current) use of anticoagulants; E03.9 Hypothyroidism, unspecified; Z68.36 Body mass index [BMI] 36.0-36.9, adult; I11.0 Hypertensive heart disease with heart failure; R09.02 Hypoxemia; I25.10 Atherosclerotic heart disease of native coronary artery without angina pectoris; Z20.822 Contact with and (suspected) exposure to COVID-19
CPT/HCPCS: 36415; 71045; 71250; 80053; 81001; 82550; 82553; 82948; 83735; 83880; 84484; 85025; 85610; 85730; 93005; 94640; 99285; G0378; J0456; J0696; J2405; J2920; J2930; J7050; U0002

== ENCOUNTER 2021-09-04 19:21 | Emergency (ER) | payer OTHER ==
[~2021-09-04] VITALS: Ht 154.9 cm; Wt 90.7 kg
[2021-09-04 20:03] LABS: BASOPHILS % 0.3 % (0.0-1.0); EOSINOPHILS # (AUTO) 0.1 (0.0-0.4); EOSINOPHILS % 1.9 % (0.0-6.0); HEMATOCRIT 33.4 % (34.2-44.1); HEMOGLOBIN 9.9 g/dL (12.0-16.0); LYMPHOCYTES # (AUTO) 1.4 (1.0-3.2); LYMPHOCYTES % 18.4 % (18.0-39.1); MEAN CORPUSCULAR HEMOGLOBIN 27.4 pg (28-32); MEAN CORPUSCULAR HGB CONC 29.6 g/dL (31-35); MEAN CORPUSCULAR VOLUME 92.5 fL (81-99); MONOCYTES # (AUTO) 0.7 (0.2-0.8); MONOCYTES % 9.5 % (4.4-11.3); NEUTROPHILS # (AUTO) 5.2 (2.1-6.9); NEUTROPHILS % 69.5 % (38.7-80.0); PLATELET COUNT 197 x10e3/uL (140-360); RED BLOOD COUNT 3.61 x10e6/uL (3.6-5.1); RED CELL DISTRIBUTION WIDTH 14.6 % (11.7-14.4)
[2021-09-04 20:17] LABS: ALBUMIN 3.5 g/dL (3.5-5.0); ALBUMIN/GLOBULIN RATIO 0.9 (0.8-2.0); ANION GAP 16.9 mmol/L (8-16); CALCIUM 9.1 mg/dL (8.4-10.2); CREATININE, SERUM 1.2 mg/dL (0.57-1.11); POTASSIUM 3.9 mmol/L (3.5-5.1)
[2021-09-04 20:23] LABS: CREATINE KINASE MB 0.8 ng/mL (0-5.0)
[2021-09-04] MEDS ORDERED: FUROSEMIDE INJ 10 MG/ML 4 ML VIAL IV ONE (21:45)
== END 2021-09-04 21:50 | disposition home or self-care (01) ==
LOC: ER 19:26
DX: I50.9 Heart failure, unspecified (principal); R60.9 Edema, unspecified; R94.31 Abnormal electrocardiogram [ECG] [EKG]; I10 Essential (primary) hypertension; G30.9 Alzheimer's disease, unspecified; F02.80 Dementia in other diseases classified elsewhere, unspecified severity, without behavioral disturbance, psychotic disturbance, mood disturbance, and anxiety; E03.9 Hypothyroidism, unspecified; E78.5 Hyperlipidemia, unspecified; E66.9 Obesity, unspecified; Z85.3 Personal history of malignant neoplasm of breast
CPT/HCPCS: 36415; 71045; 80053; 82550; 82553; 83880; 84484; 85025; 93005; 99284; J1940